=== PATIENT | male | born 1980 | race Caucasian/White ===

== ENCOUNTER 2016-07-07 05:19 | Emergency (ER) | payer BC ==
[~2016-07-07] VITALS: Ht 175.3 cm; Wt 95.5 kg
[~2016-07-07 05:19] MED LIST: BACTRIM DS 8001 TAB PO; CARAFATE S1 GM/10 ML PO; CEPHALEXIN500 M1 PO; CLEOCIN HC150 MG/CAP PO; CLINDAMYCIN300 MG PO; DARVOCET N; FLEXERIL 1010 MG/TAB PO; IBU800 M1 PO; LORTAB 5/500 501 TAB PO; NAPROSYN500 MG PO; NO HOME MEDICATIONS; NORCO 325 MG-51 TAB PO; NORCO 325 MG-7.1 TAB PO; PERCOCET 5/321 UDTAB PO; PREVACID 30MG30 MG PO; PRILOSEC 20MG20 MG PO; VICODIN 5/5001 UDTAB PO; ZANAFLEX2 MG; ZESTRIL 5MG5 MG PO
[2016-07-07 05:21] VITALS: TEMP 97.9
[2016-07-07] MEDS ORDERED: ZESTRIL 10MG10 MG PO (05:24)
[2016-07-07] MEDS ORDERED: PRINZIDE 12.5 M1 TA1 PO (05:25)
[2016-07-07 05:45] LABS: BASO # 0.1 (0.0-0.2); BASO % 0.9 % (0.0-2.0); EOS % 0.4 % (0-4.0); GRAN # 6.2 (1.4-6.5); GRAN % 63.1 % (42.2-75.2); HEMATOCRIT 46.4 % (42.0-52.0); HEMOGLOBIN 16.1 g/dl (13.5-18.0); LYMPH # 2.9 (1.2-3.4); LYMPH % 29.7 % (20.0-51.0); MEAN CELL VOLUME 89 fl (80.0-100.0); MEAN CORPUSCULAR HEMOGLOBIN 31 pg (27.0-31.0); MEAN CORPUSCULAR HGB CONC 35 g/dl (33.0-37.0); MONO # 0.4 (0.1-0.6); MONO % 4.4 % (1.7-9.3); PLATELET COUNT 269 K/mm3 (130-400); REDCELL DISTRIBUTION WIDTH-CV 12.6 % (11.5-14.5); WHITE BLOOD COUNT 9.8 K/mm3 (4.8-10.8)
[2016-07-07 05:54] LABS: ADJUSTED CALCIUM 9.2 mg/dL (8.4-10.2); ALBUMIN 4.7 gm/dL (3.5-5.0); BILIRUBIN,TOTAL 1.3 mg/dL (0.0-1.0); CALCIUM 9.8 mg/dL (8.4-10.2); POTASSIUM 3.9 mmol/L (3.4-5.0)
[2016-07-07 06:10] VITALS: BP 153/108; PULSE 83
[2016-07-07] MEDS ORDERED: PRIL40 PO (06:11)
[2016-07-07] MEDS ORDERED: ZOFRAN8 MG PO (06:11)
[2016-07-07] MEDS ORDERED: ULTRAM 50MG TAB50 MG PO (06:11)
[2016-07-07] MEDS ORDERED: PERCOCET 325 MG1 TA2 PO (06:11)
== END 2016-07-07 06:47 | disposition home or self-care (01) ==
LOC: COL.ER 05:19
PROVIDERS: Emergency Medicine
DX: R10.13 Epigastric pain (principal)
CPT/HCPCS: C9113; J1170; J1885; J2175

== ENCOUNTER 2016-10-08 10:59 | Emergency (ER) | payer BC ==
[~2016-10-08] VITALS: Ht 175.3 cm; Wt 96.4 kg
[~2016-10-08 10:59] MED LIST changes: +PERCOCET 325 MG1 TA2 PO; +PRIL40 PO; +PRINZIDE 12.5 M1 TA1 PO; +ULTRAM 50MG TAB50 MG PO; +ZESTRIL 10MG10 MG PO; +ZOFRAN8 MG PO
[2016-10-08 11:01] VITALS: TEMP 97.5
[2016-10-08] MEDS ORDERED: BRINTELLIX20 PO (11:05)
[2016-10-08] MEDS ORDERED: ZOFRAN8 MG PO (11:22)
[2016-10-08] MEDS ORDERED: ULTRAM 50MG TAB50 MG PO (11:22)
[2016-10-08] MEDS ORDERED: PRIL40 PO (11:22)
[2016-10-08] MEDS ORDERED: PERCOCET 325 MG1 TA2 PO (11:22)
[2016-10-08 11:35] LABS: BASO # 0.1 (0.0-0.2); BASO % 0.8 % (0.0-2.0); EOS # 0.1 (0.0-0.7); EOS % 1.2 % (0-4.0); GRAN # 3.7 (1.4-6.5); GRAN % 49.3 % (42.2-75.2); HEMATOCRIT 46.2 % (42.0-52.0); HEMOGLOBIN 16.1 g/dl (13.5-18.0); LYMPH # 3.1 (1.2-3.4); LYMPH % 41.1 % (20.0-51.0); MEAN CELL VOLUME 89 fl (80.0-100.0); MEAN CORPUSCULAR HEMOGLOBIN 31 pg (27.0-31.0); MEAN CORPUSCULAR HGB CONC 35 g/dl (33.0-37.0); MEAN PLATELET VOLUME 9.1 fl (7.4-10.4); MONO # 0.4 (0.1-0.6); MONO % 5.5 % (1.7-9.3); PLATELET COUNT 239 K/mm3 (130-400); WHITE BLOOD COUNT 7.5 K/mm3 (4.8-10.8)
[2016-10-08 11:44] LABS: ALBUMIN 4.6 gm/dL (3.5-5.0); BILIRUBIN,TOTAL 1.3 mg/dL (0.0-1.0); CALCIUM 9.5 mg/dL (8.4-10.2); CREATININE, serum 1.05 mg/dL (0.66-1.25); POTASSIUM 3.9 mmol/L (3.4-5.0); TOTAL PROTEIN 7.6 gm/dL (6.4-8.2)
[2016-10-08 12:16] VITALS: BP 151/113; PULSE 87
== END 2016-10-08 13:07 | disposition home or self-care (01) ==
LOC: COL.ER 10:59
PROVIDERS: Emergency Medicine
DX: R10.13 Epigastric pain (principal); I10 Essential (primary) hypertension; K21.9 Gastro-esophageal reflux disease without esophagitis; Z87.11 Personal history of peptic ulcer disease; F17.210 Nicotine dependence, cigarettes, uncomplicated
CPT/HCPCS: C9113; J1170; J2405; J7030; Q9967

== ENCOUNTER 2017-02-12 07:31 | Emergency (ER) | payer BC ==
[~2017-02-12] VITALS: Ht 175.3 cm; Wt 95.8 kg
[~2017-02-12 07:31] MED LIST changes: +BRINTELLIX20 PO
[2017-02-12 07:36] VITALS: TEMP 98
[2017-02-12 08:28] LABS: BASO # 0.1 (0.0-0.2); EOS # 0.1 (0.0-0.7); EOS % 1.6 % (0-4.0); GRAN # 3.9 (1.4-6.5); GRAN % 54.7 % (42.2-75.2); HEMATOCRIT 46.1 % (42.0-52.0); HEMOGLOBIN 16.1 g/dl (13.5-18.0); LYMPH # 2.5 (1.2-3.4); LYMPH % 35.6 % (20.0-51.0); MEAN CELL VOLUME 88 fl (80.0-100.0); MEAN CORPUSCULAR HEMOGLOBIN 31 pg (27.0-31.0); MEAN CORPUSCULAR HGB CONC 35 g/dl (33.0-37.0); MEAN PLATELET VOLUME 9.3 fl (7.4-10.4); MONO # 0.4 (0.1-0.6); MONO % 5.7 % (1.7-9.3); PLATELET COUNT 219 K/mm3 (130-400); RED BLOOD COUNT 5.26 M/mm3 (4.20-5.60); REDCELL DISTRIBUTION WIDTH-CV 13.2 % (11.5-14.5); WHITE BLOOD COUNT 7.1 K/mm3 (4.8-10.8)
[2017-02-12 09:08] LABS: ALBUMIN 4.5 gm/dL (3.5-5.0); BILIRUBIN,TOTAL 1.3 mg/dL (0.0-1.0); CALCIUM 9.4 mg/dL (8.4-10.2); CREATININE, serum 1.06 mg/dL (0.66-1.25); POTASSIUM 3.7 mmol/L (3.4-5.0); TOTAL PROTEIN 7.4 gm/dL (6.4-8.2)
[2017-02-12 09:45] VITALS: BP 125/96; PULSE 72
== END 2017-02-12 10:05 | disposition home or self-care (01) ==
LOC: COL.ER 07:31
PROVIDERS: Emergency Medicine; Nurse Practitioner
DX: R07.89 Other chest pain (principal); R11.0 Nausea; R06.02 Shortness of breath; R00.2 Palpitations; I10 Essential (primary) hypertension; K21.9 Gastro-esophageal reflux disease without esophagitis; M79.671 Pain in right foot

== ENCOUNTER 2018-01-09 11:07 | Emergency (ER) | payer BC ==
[~2018-01-09] VITALS: Ht 175.3 cm; Wt 97.7 kg
[2018-01-09 11:15] VITALS: TEMP 98
[2018-01-09 13:09] VITALS: BP 128/92; PULSE 85
== END 2018-01-09 13:10 | disposition home or self-care (01) ==
LOC: COL.ER 11:07
DX: S00.83XA Contusion of other part of head, initial encounter (principal); I10 Essential (primary) hypertension; J45.909 Unspecified asthma, uncomplicated; F17.220 Nicotine dependence, chewing tobacco, uncomplicated; Z90.89 Acquired absence of other organs; W22.8XXA Striking against or struck by other objects, initial encounter; Y92.89 Other specified places as the place of occurrence of the external cause

== ENCOUNTER 2018-04-14 13:50 | Emergency (ER) | payer BC ==
[~2018-04-14] VITALS: Ht 172.7 cm; Wt 95.5 kg
[2018-04-14 13:53] VITALS: TEMP 98.8
[2018-04-14 15:32] VITALS: BP 140/96; PULSE 90
== END 2018-04-14 15:33 | disposition home or self-care (01) ==
LOC: COL.ER 13:50
DX: S66.912A Strain of unspecified muscle, fascia and tendon at wrist and hand level, left hand, initial encounter (principal); R03.0 Elevated blood-pressure reading, without diagnosis of hypertension; F17.210 Nicotine dependence, cigarettes, uncomplicated; Z98.890 Other specified postprocedural states; Z90.49 Acquired absence of other specified parts of digestive tract; Z88.0 Allergy status to penicillin; X50.0XXA Overexertion from strenuous movement or load, initial encounter; Y92.89 Other specified places as the place of occurrence of the external cause

== ENCOUNTER 2019-09-03 12:29 | Emergency (ER) | payer BC ==
[~2019-09-03] VITALS: Ht 175.3 cm; Wt 95.5 kg
[2019-09-03 12:55] VITALS: TEMP 98.1
[2019-09-03] MEDS ORDERED: PRIL40 PO (13:26)
[2019-09-03] MEDS ORDERED: PRINIVIL20 MG PO (13:26)
[2019-09-03 13:55] LABS: BASO # 0.1 (0.0-0.2); BASO % 0.8 % (0.0-2.0); EOS % 0.3 % (0-4.0); GRAN # 4.7 (1.4-6.5); GRAN % 70.6 % (42.2-75.2); HEMATOCRIT 42.5 % (42.0-52.0); HEMOGLOBIN 14.8 g/dl (13.5-18.0); LYMPH # 1.5 (1.2-3.4); LYMPH % 22.5 % (20.0-51.0); MEAN CELL VOLUME 87 fl (80.0-100.0); MEAN CORPUSCULAR HEMOGLOBIN 30 pg (27.0-31.0); MEAN CORPUSCULAR HGB CONC 35 g/dl (33.0-37.0); MEAN PLATELET VOLUME 9.1 fl (7.4-10.4); MONO # 0.3 (0.1-0.6); MONO % 4.4 % (1.7-9.3); PLATELET COUNT 228 K/mm3 (130-400); RED BLOOD COUNT 4.88 M/mm3 (4.20-5.60); REDCELL DISTRIBUTION WIDTH-CV 12.8 % (11.5-14.5)
[2019-09-03 14:14] LABS: ALANINE AMINOTRANSFERASE 14 U/L (21-72); ALBUMIN 4.6 gm/dL (3.5-5.0); ALKALINE PHOSPHATASE 81 U/L (50-136); ANION GAP 11 mmol/L (7-16); AST,SGOT 30 U/L (15-37); BILIRUBIN,TOTAL 1.3 mg/dL (0.0-1.0); BLOOD UREA NITROGEN 13 mg/dL (9-20); CALCIUM 9.1 mg/dL (8.4-10.2); CARBON DIOXIDE 21 mmol/L (22-30); CHLORIDE 108 mmol/L (98-107); CREATININE, serum 1.06 (0.66-1.25); GLUCOSE 93 mg/dL (74-106); POTASSIUM 4.1 mmol/L (3.4-5.0); SODIUM 139 mmol/L (137-145); TOTAL PROTEIN 7.6 gm/dL (6.4-8.2)
[2019-09-03 14:15] LABS: C-REACTIVE PROTEIN < 0.5 mg/dL (0.0-0.9)
[2019-09-03] MEDS ORDERED: DOXYCYCLINE 10100 MG PO (15:42)
[2019-09-03] MEDS ORDERED: PERCOCET 325 MG1 TA2 PO (15:42)
[2019-09-03 16:00] VITALS: BP 136/98; PULSE 83
== END 2019-09-03 16:05 | disposition home or self-care (01) ==
LOC: COL.ER 12:29
PROVIDERS: Physician Assistant
DX: K62.89 Other specified diseases of anus and rectum (principal); K58.9 Irritable bowel syndrome, unspecified; I10 Essential (primary) hypertension; K21.9 Gastro-esophageal reflux disease without esophagitis; Z88.0 Allergy status to penicillin
CPT/HCPCS: J1170; J2405; J7030; Q9967

== ENCOUNTER → 2020-01-04 | Outpatient (CLI) | payer BC ==
[~2020-01-04] MED LIST changes: +DOXYCYCLINE 10100 MG PO; +PRINIVIL20 MG PO
== END ==
LOC: ZCOL.LAB 21:50
DX: R07.0 Pain in throat (principal); R50.9 Fever, unspecified; Z20.828 Contact with and (suspected) exposure to other viral communicable diseases

== ENCOUNTER 2022-10-05 08:06 | Outpatient (RCR) | END 2022-10-28 | LOC: WSPT | DX: S89.92XD Unspecified injury of left lower leg, subsequent encounter (principal); X58.XXXD Exposure to other specified factors, subsequent encounter ==